=== PATIENT | female | born 1940 | race Caucasian/White ===

== ENCOUNTER 2017-08-24 09:32 | Emergency (ER) | payer MEDICARE ==
[~2017-08-24] VITALS: Ht 157.5 cm; Wt 80.0 kg
[~2017-08-24 09:32] MED LIST: ACCUPRIL40 MG PO; ACIPHEX20 MG PO; AMARYL1 M1 PO; AMARYL2 MG PO; ASPIRIN EC81 MG PO; FLEXERIL PO; GLIMEPIRIDE2 MG PO; INVOKANA100 MG PO; LANTUS SOLOSTAR SC; LEVOTHYROXIN137 MCG PO; MAXZIDE-2537.5 MG/TA PO; MOBIC7.5 M1 PO; NERVE PO; NEURONTIN300 MG PO; NIFEDIPINE ER60 M1 PO; PROCARDIA XL90 MG PO; PROTONIX40 MG PO; SYNTHROID175 MCG PO; VICTOZA18 MG/3 ML; VITAMIN B-12500 MCG PO; VITAMIN D5000 UNIT PO; [UNRECOGNIZED DRUG - OTHER] OT; [UNRECOGNIZED DRUG - OTHER] PO
[2017-08-24] MEDS ORDERED: AMOXICILLIN500 MG PO ×2 (10:28→10:47)
[2017-08-24] MEDS ORDERED: BENADRY2 EX ×2 (10:28→10:47)
[2017-08-24 10:49] VITALS: BP 180/71
== END 2017-08-24 10:29 | disposition home or self-care (01) ==
LOC: ED 09:32
DX: L03.115 Cellulitis of right lower limb (principal); I10 Essential (primary) hypertension; E11.9 Type 2 diabetes mellitus without complications

== ENCOUNTER 2018-07-14 12:07 | Inpatient (IN) | payer MEDICARE ==
[~2018-07-14] VITALS: Ht 157.5 cm; Wt 82.0 kg
[~2018-07-14 12:07] MED LIST changes: +AMOXICILLIN500 MG PO; +BENADRY2 EX
--- NOTE | 2018-07-14 12:25 | NUR ---
PT TRIAGED, AMBULATES TO TX ROOM WITH STABLE GAIT.
[2018-07-14 13:08] LABS: HEMATOCRIT 39.4 % (37.0-47.0); HEMOGLOBIN 12.7 g/dl (12.0-16.0); IMMATURE GRANULOCYTES 0.3 % (0.0-5.0); MEAN CELL VOLUME 90.8 fL CALC (80.0-100.0); MEAN CORPUSCULAR HGB 29.3 pG CALC (26.0-32.0); MEAN CORPUSCULAR HGB CONC 32.2 g/L CALC (32.0-36.0); NEUT# 14.71 thou/uL (2.00-7.15); RED BLOOD COUNT 4.34 mill/uL (4.20-5.60); RED CELL DISTRI WIDTH 12.5 % (11.5-15.5)
[2018-07-14 13:14] LABS: CREATININE 1.6 mg/dL (0.5-1.0)
[2018-07-14 13:15] LABS: INFLUENZA A NONE DETECTED (NONE DETECT); INFLUENZA B NONE DETECTED (NONE DETECT)
--- NOTE | 2018-07-14 13:16 | NUR ---
PT STATES WAS GIVEN RX FOR AMOXICILLIN THIS AM, GOT IT FILLED BUT HAS NOT TAKEN ANY OF THE PILLS YET.
[2018-07-14 13:42] LABS: URINE BILIRUBIN - DIPSTICK NEGATIVE (NEGATIVE); URINE BLOOD DIPSTICK NEGATIVE (NEGATIVE); URINE COLOR YELLOW; URINE GLUCOSE - DIPSTICK NEGATIVE (NEGATIVE); URINE KETONE NEGATIVE (NEGATIVE); URINE LEUK ESTERASE NEGATIVE (NEGATIVE); URINE NITRITE - DIPSTICK NEGATIVE (Negative); URINE PROTEIN - DIPSTICK NEGATIVE (NEG-TRACE); URINE UROBILINOGEN - DIPSTICK 0.2 E.U./dL (0.2)
--- NOTE | 2018-07-14 13:51 | NUR ---
PT RESTING QUIETLY ON STRETCHER, AT BEDSIDE. PT HAS CALL LIGHT WITHIN REACH, SIDE RAILS UP.
[2018-07-14 14:05] LABS: URINE CLARITY CLEAR
--- NOTE | 2018-07-14 14:11 | NUR ---
SBAR PRINTED TO FLOOR
--- NOTE | 2018-07-14 14:36 | NUR ---
PT REPORT CALLED TO FLOOR
--- NOTE | 2018-07-14 14:57 | NUR ---
PT ARRIVED TO RM 282 @1457 VIA WHEELCHAIR, WEIGHT OBTAINED. PT ALERT AND ORIENTED X3, NO EDEMA. ORIENTED PT TO ROOM AND CALL LIGHT SYSTEM. 2ND BOLUS INFUSING AT THIS TIME FROM ER. NOTED IV SITE LEAKING. IV SITE REMOVED, CATHETER INTACT. NEW IV SITE OBTAINED #22 RFA SUCCESSFUL AFTER 1 ATTEMPT. PT TOLERATED WELL, CONTINUED WITH BOLUS, FAMILY AT BEDSIDE. ADMISSION ASSESSMENT COMPLETED. CALL LIGHT IN REACH,CONTINUE TO MONITOR.
[2018-07-14 15:06] VITALS: BP 114/78
--- NOTE | 2018-07-14 16:50 | NUR ---
SASHA APPLIED AND EDUCATED PT ON USE OF INCENTIVE SPIROMETER, PT DEMONSTRATED ITS USE. TOTAL VOLUME 1000. CALL LIGHT IN REACH,CONTINUE TO MONITOR.
[2018-07-14 16:52] LABS: CHOLESTEROL HDL RATIO 5.4 (<4.4 (CALC))
[2018-07-14 20:00] VITALS: BP 142/67
--- NOTE | 2018-07-14 22:09 | NUR ---
PT MEDICATED ORDES PROVIDE, MEDICATED FOR TEMP OF 102.1 AND PT ASSESSED AT THIS TIME. LUNG SOUNDS ARE CLEAR, NO NOTED EDEMA, ABD SOFT NON-TENDER, LOCX3, NEURO'S INTACT. POC DISCUSSED AND PT PROVIDED COMFORT MEASURES REQUESTED. CALL LIGHT IS AT BEDSIDE AND PT ENCOURAGED TO CALL. WILL FOLLOW-UP TO MONITOR TEMP.
[2018-07-15 00:30] VITALS: BP 131/57
--- NOTE | 2018-07-15 01:25 | NUR ---
PT APPEARS TO BE SLEEPING AT THIS TIME. NO S/S OF DISTRESS NOTED. CALL LIGHT IS AT SIDE.
--- NOTE | 2018-07-15 03:43 | NUR ---
PT MEDICATED FOR TEMP AND HEADACHE. IV FLUIDS REPLENISHED AT THIS TIME. PT ASSISTED TO RESTROOM AND BACK TO BED. PT EDUCATED REGARDING USE OF IS, SHE REPORTS THAT SHE IS USING IT WHEN SHE WAKES UP. DENIES ANY OTHER NEEDS AT THIS TIME. CALL LIGHT IS AT SIDE.
[2018-07-15 03:52] VITALS: BP 150/69
[2018-07-15 04:41] VITALS: BP 161/82
[2018-07-15 05:02] LABS: HEMATOCRIT 33.8 % (37.0-47.0); IMMATURE GRANULOCYTES 0.6 % (0.0-5.0); MEAN CELL VOLUME 91.1 fL CALC (80.0-100.0); MEAN CORPUSCULAR HGB 29.6 pG CALC (26.0-32.0); MEAN CORPUSCULAR HGB CONC 32.5 g/L CALC (32.0-36.0); NEUT# 10.36 thou/uL (2.00-7.15); RED BLOOD COUNT 3.71 mill/uL (4.20-5.60); RED CELL DISTRI WIDTH 12.7 % (11.5-15.5)
[2018-07-15 05:19] LABS: CREATININE 1.2 mg/dL (0.5-1.0); MAGNESIUM 1.6 mg/dL (1.6-2.3); POTASSIUM 4.4 mmol/l (3.5-5.1)
[2018-07-15 08:00] VITALS: BP 133/55
--- NOTE | 2018-07-15 08:00 | NUR ---
PT RESTING IN BED, NO SIGNS OF DISTRESS NOTED, RESP EVEN AND UNLABORED. PT ALERT AND ORIENTED X3, 02 2L NC, PT VOICES NO NEEDS OR COMPLAINTS AT THIS TIME. DISCUSSED POC, PT IN AGREEMENT. IS AT BEDSIDE. ASSESSMENT COMPLETED, CALL LIGHT IN REACH,CONTINUE TO MONITOR.
--- NOTE | 2018-07-15 14:00 | NUR ---
PT REQUESTING SOMETHING FOR HER THROAT, THROAT LOZENGES ORDERED, WILL GIVE ONCE PROFILED.
[2018-07-15 17:00] VITALS: BP 151/55
--- NOTE | 2018-07-15 17:00 | NUR ---
PT TEMP ELEVATED 102.2, TYLENOL 500MG GIVEN, INFORMED [employer]ED [employer] ROBOTICIST. ORDERS CHANGED FOR TYLENOL. PT VOICES NO COMPLAINTS AT THIS TIME. CALL LIGHT IN REACH,CONTINUE TO MONITOR.
--- NOTE | 2018-07-15 18:20 | NUR ---
VISITORS AT BEDSIDE, RECHECKED FEVER, TEMP 101.6 AT THIS TIME. CONTINUE TO MONITOR.
[2018-07-15 20:00] VITALS: BP 129/55
--- NOTE | 2018-07-15 21:47 | NUR ---
PT MEDICATED FOR COUGH AND TEMP OF 101.6 ROOM IS COOLED. NO SOB NOTED, REPORTS OF NON-PRODUCTIVE COUGH. NO OTHER S/O DISTRESS NOTED. LUNG SOUNDS ARE CLEAR, ABD SOFT/NON-TENDER, NO EDEMA NOTED, DENIES PAIN/N/V. POC DISCUSSED ALONG W/MEDICATION SCHEDULE. CALL LIGHT IS AT SIDE AND PT ENCOURAGED TO CALL IF ANY ASSISTANCE IS NEEDED.
--- NOTE | 2018-07-16 00:12 | NUR ---
PT IV FLUIDS REPLENISHED AT THIS TIME. SHE DENIES SOB/N/V AND NO NOTED DISTRESS. TV ON LIGHTS OFF CALL LIGHT IN HAND. DENIES ANY OTHER NEEDS BUT PT ENCOURAGED TO CALL IF ANY NEEDS DO ARISE.
[2018-07-16 00:23] VITALS: BP 120/46
--- NOTE | 2018-07-16 03:00 | NUR ---
PT APPEARS TO BE SLEEPING AT THIS TIME. CALL LIGHT AT SIDE AND NO S/S OF DISTRESS NOTED. WILL CONTINUE TO MONITOR.
[2018-07-16 04:00] VITALS: BP 153/56
[2018-07-16 04:36] LABS: HEMATOCRIT 37.4 % (37.0-47.0); HEMOGLOBIN 11.8 g/dl (12.0-16.0); IMMATURE GRANULOCYTES 0.5 % (0.0-5.0); MEAN CELL VOLUME 92.6 fL CALC (80.0-100.0); MEAN CORPUSCULAR HGB 29.2 pG CALC (26.0-32.0); MEAN CORPUSCULAR HGB CONC 31.6 g/L CALC (32.0-36.0); NEUT# 7.73 thou/uL (2.00-7.15); RED BLOOD COUNT 4.04 mill/uL (4.20-5.60); RED CELL DISTRI WIDTH 12.8 % (11.5-15.5)
[2018-07-16 05:04] LABS: ANION GAP 14 (6-22 (CALC)); BUN 14 mg/dL (8-23); BUN/CREATININE RATIO 14 (12-20 (CALC)); CARBON DIOXIDE 23 mmol/l (22-30); CHLORIDE 108 mmol/l (95-108); GFR 54 ML/MIN (>=60 (CALC)); GFR FOR AFR.AMER. > 60 ML/MIN (>=60 (CALC)); MAGNESIUM 1.7 mg/dL (1.6-2.3); POTASSIUM 4.5 mmol/l (3.5-5.1); SODIUM 140 mmol/l (137-146)
--- NOTE | 2018-07-16 05:12 | NUR ---
PT WAS SLEEPING WE ENTERED THE ROOM. V/S ASSESSED. IV FLUIDS ARE RUNNING ORDERS PROVIDE/SITE APPEARS HEALTHY. NO S/S OF DISTRESS NOTED. CALL LIGHT IS AT SIDE AND PT ENCOURAGED TO CALL IF ANY NEEDS ARISE.
--- NOTE | 2018-07-16 07:20 | NUR ---
REPORT RECEIVED FROM SUSAN ESTRADA; PT LAYING IN BED AWAKE, PT JUST HAD A BATH; RESP EVEN AND UNLABORED; WILL CONTINUE TO MONITOR.
[2018-07-16 08:41] VITALS: BP 114/54
--- NOTE | 2018-07-16 08:45 | NUR ---
ASSESSMENT COMPLETED; VITALS STABLE; 02 2L N/C; IV PATENT NS @100 INFUSING WELL; NO REDNESS OR EDEMA TO SITE; TELE IN PLACE SR 75 ON MONITOR; EDUCATE PT OF AM MEDS, PT REFUSED LOVENOX; ENCOURAGE PT TO AMBULATE AND ASK FOR ASSISTANCE; PT VOICED NO CONCERNS; BED IN LOW LOCKED POSITION; WILL CONTINUE TO MONITOR.
--- NOTE | 2018-07-16 10:30 | NUR ---
TO US VIA WHEELCHAIR, FAMILY MEMBERS AT BEDSIDE.
--- NOTE | 2018-07-16 10:50 | NUR ---
PT BACK FROM CT, AMBULATED TO BATHROOMW WITH STEADY GAIT, BACK TO RECLINER AT BEDSIDE WITHOUT INCIDENT, IV SITE FLUSHED AND IVF RESTARTED AT PRESCRIBED RATE, CALL HANSEN WITHIN REACH.
--- NOTE | 2018-07-16 10:55 | NUR ---
SPECIMEN CUP PROVIDED FOR SPUTUM SPECIMEN IF ABLE, PT VERBALIZES UNDERSTANDING.
[2018-07-16 11:20] VITALS: BP 149/67
--- NOTE | 2018-07-16 12:00 | NUR ---
PT SITTING UP IN RECLINER EATING LUNCH, FAMILY MEMBERS PRESENT. PT VOICED NO CONCERNS.
--- NOTE | 2018-07-16 13:22 | NUR ---
S: BRIDGETTE SINGLETARY is a 78 F who presents with sepsis and right upper lobe pneumonis. She has a history of diabetes, hypertension, hypothyroid. All medications in patient's chart were reviewed. O: VS: BP 149/67, P 80, RR 20,T 98.4 W 82.015 kg, HT 5'2in , Scr=1,CrCl=46.756 ml/min A: Blood culture show no growth after 48 hours. P: Patient is on Azithromycin and Ceftriaxone. Vancomycin ordered for pharmacy to dose. Start Vancomycin 1250mg IV Q24H. Vancomycin trough is drawn before the 4th dose on 07/19/2018 @ 15:30. Vancomycin goal trough is between 15-20 mcg/ml. Pharmacy will follow and or advise on antibiotics use as needed.
[2018-07-16 15:40] VITALS: BP 131/59
--- NOTE | 2018-07-16 16:13 | NUR ---
PT REMAIN SITTING UP IN RECLINER VISITING WITH HER DAUGHTER AND WATCHING TV; IV PATENT; PT SHOWS NO S/S OF DISTRESS; CALL HANSEN IN REACH; WILL CONTINUE TO MONITOR.
--- NOTE | 2018-07-16 17:29 | NUR ---
PT STATED HER HEAD'S HURTING AND FEELS LIKE SHE HAS A FEVER (99.4) PT REQUESTED TYLENOL, MEDICATED PER EMAR; PT SITTING UP IN BED EATING SUPPER AND VISITING WITH HER DAUGHTER.
--- NOTE | 2018-07-16 19:23 | NUR ---
BEDSIDE PRPORT RECEIVED FROM ANNEL MILLER. PT SITTING UP IN BED WITH FAMILY AT BEDSIDE; ALERT AND ORIENTED. DENIES PAIN CURRENTLY. RESPIRATIONS EVEN AND UNLABORED ON OXYGEN; AWARE THAT WE NEED SPUTUM SPECIMEN. PLAN OF CARE DISCUSSED. PT ENCOURAGED TO VERABLIZE CONCERNS. STATES UNDERSTANDING. SAFETY MEASURES IN PLACE. CALL LIGHT WITHIN REACH.
[2018-07-16 20:13] VITALS: BP 135/64
[2018-07-17] VITALS: BP 138/71
--- NOTE | 2018-07-17 | NUR ---
PT ASLEEP AT THIS TIME WITH NO SIGNS OF DISTRESS. RESPIRATIONS EVEN AND UNLABORED ON OXYGEN. OCCASIONAL COUGHING NOTED; PT DECLINED PRN ROBITUSSIN OFFERED AT HS. IV FLUIDS INFUSING WITHOUT DIFFICULTY; IV SITE APPEARS HEALTHY. INDEPENDENT IN ROOM; USES CALL LIGHT PRN FOR ASSISTANCE. SAFETY MEASURES IN PLACE. CALL LIGHT WITHIN REACH.
[2018-07-17 04:00] VITALS: BP 134/59
--- NOTE | 2018-07-17 04:41 | NUR ---
NO ACUTE CHANGES IN CONDITION THROUGHOUT THE NIGHT. PT AWAKENS SPONTANEOUSLY FOR VS AND LAB WORK. NO REQUESTS OR CONCERNS AT THIS TIME.
[2018-07-17 05:36] LABS: HEMOGLOBIN 11.1 g/dl (12.0-16.0); MEAN CELL VOLUME 92.6 fL CALC (80.0-100.0); MEAN CORPUSCULAR HGB 29.4 pG CALC (26.0-32.0); MEAN CORPUSCULAR HGB CONC 31.7 g/L CALC (32.0-36.0); NEUT# 9.23 thou/uL (2.00-7.15); RED BLOOD COUNT 3.78 mill/uL (4.20-5.60); RED CELL DISTRI WIDTH 13.1 % (11.5-15.5)
[2018-07-17 05:46] LABS: ANION GAP 17 (6-22 (CALC)); BUN 16 mg/dL (8-23); BUN/CREATININE RATIO 19 (12-20 (CALC)); CARBON DIOXIDE 20 mmol/l (22-30); CHLORIDE 109 mmol/l (95-108); CREATININE 0.9 mg/dL (0.5-1.0); GFR > 60 ML/MIN (>=60 (CALC)); GFR FOR AFR.AMER. > 60 ML/MIN (>=60 (CALC)); MAGNESIUM 1.7 mg/dL (1.6-2.3); SODIUM 140 mmol/l (137-146)
[2018-07-17 05:48] LABS: POTASSIUM 5.5 mmol/l (3.5-5.1)
--- NOTE | 2018-07-17 07:15 | NUR ---
REPORT RECEIVED FROM SUSAN RODRIGUEZ; PT LAYING IN BED WATCHING TV; RESP EVEN AND UNLABORED.
[2018-07-17 08:39] VITALS: BP 133/67
--- NOTE | 2018-07-17 08:40 | NUR ---
PT A/OX3; RESP EVEN & UNLABORED, 02 @ 2L NC; IV INFUSING NS@ 100CC/HR , SITE APPEARS HEALTHY; NO COUGH NOTED; PT STATED SHE HAD A SM BM TODAY; ADVISE HER NOT TO FLUSH TOILET; VOIDED 700CC CLEAR YELLOW URINE; TELE IN PLACE SR 85 ON MONITOR; PT ENCOURAGE TO GET OUT OF BED AND WALK; ADVISE TO CALL FOR ASSISTANCE; DAUGHTER AT BED SIDE; CALL LIGHT IN REACH; MEDICATED PER EMAR. WILL CONTINUE TO MONITOR.
--- NOTE | 2018-07-17 11:15 | NUR ---
ACCUC CHECK 416; DR YEPEZ ON FLOOR AND ORDERED 10 UNITS INSULIN BE GIVEN TO PT.
[2018-07-17 11:20] VITALS: BP 138/62
--- NOTE | 2018-07-17 11:52 | NUR ---
PT WALKED THE HALLS WITH HER DAUGHTER; NOW SITTING UP IN RECLINER EATING LUNCH; FAMILY PRESENT IN ROOM.
--- NOTE | 2018-07-17 12:29 | NUR ---
DR YEPEZ IN TO SEE PT DISCUSS POC
--- NOTE | 2018-07-17 13:05 | NUR ---
PT OFF THE FLOOR TO CT VIA W/C WITH 02 2L; ACCOMPANIED BY A VOLUNTEER WITH A ROWLEY PASS.
--- NOTE | 2018-07-17 14:00 | NUR ---
PT BACK FROM RADIOLOGY, UNABLE TO PERFORM THORACENTESIS PER CHANDRIKA STERNP NOT ENOUGH FLUID TO COMPLETE. AWARE. PT AWARE OF CONTINUED NEED FOR SPUTUM SPECIMEN FOR CULTURE, RT TO ATTEMPT INDUCTION. CALL HANSEN WITHIN REACH.
[2018-07-17 15:15] VITALS: BP 133/63
--- NOTE | 2018-07-17 15:34 | NUR ---
PT SITTING UP IN BED WATCHING TV AND ON HER PHONE. O2 IS 85% ON ROOM AIR; PT WAS ADVISED TO WEAR O2 @ 2L NC; NO S/S OF DISTRESS NOTED; WILL CONTINUE TO MONITOR.
--- NOTE | 2018-07-17 15:42 | NUR ---
PT SITTING UP IN RECLINER, PT VOICED NO CONCERNS; IV INFUSING WITH EASE; FAMILY MEMBERS PRESENT IN ROOM. WILL CONTINUE TO MONITOR.
--- NOTE | 2018-07-17 19:20 | NUR ---
BEDSIDE REPORT RECEIVED FROM ANNEL MILLER. PT SITTING UP IN BEDSIDE CHAIR WITH DAUGHTER AT BEDSIDE; ALERT AND ORIENTED. DENIES PAIN. RESPIRATIONS EVEN AND UNLABORED ON ROOM AIR AND LUNGS ARE CLEAR. VANCO INFUSING AT THIS TIME; PT TOLERATING WELL. PLAN OF CARE REVIEWED. PT ENCOURAGED TO VERABLIZE CONCERNS. STATES UNDERSTANDING. SAFETY MEASURES IN PLACE. CALL LIGHT WITHIN REACH.
[2018-07-17 20:00] VITALS: BP 128/60
--- NOTE | 2018-07-17 22:00 | NUR ---
HS BLOOD SUGAR 421; DR. FOX NOTIFIED. NEW ORDERS FOR ADDITIONAL LEVEMIR AND NOVOLOG; ADMINISTERED WITH SNACK.
--- NOTE | 2018-07-18 00:22 | NUR ---
PT ASLEEP AT THIS TIME WITH NO SIGNS OF DISTRESS. RESPIRATIONS EVEN AND UNLABORED ON ROOM AIR. IV SITE APPEARS HEALTHY AND FLUSHES. PT IS INDEPENDENT IN ROOM; USES CALL LIGHT PRN FOR ASSISTANCE. SAFETY MEASURES IN PLACE. CALL LIGHT WITHIN REACH.
[2018-07-18 00:38] VITALS: BP 137/64
[2018-07-18 04:00] VITALS: BP 143/72
--- NOTE | 2018-07-18 04:14 | NUR ---
NO ACUTE CHANGES IN CONDITION THROUGHOUT THE NIGHT. PT AWAKNES SPONTANEOUSLY FOR VS AND LAB WORK. NO REQUESTS OR CONCERNS AT THIS TIME. SAFETY MEASURES IN PLACE. CALL LIGHT WITHIN REACH.
[2018-07-18 05:27] LABS: HEMATOCRIT 33.6 % (37.0-47.0); HEMOGLOBIN 10.6 g/dl (12.0-16.0); MEAN CELL VOLUME 92.8 fL CALC (80.0-100.0); MEAN CORPUSCULAR HGB 29.3 pG CALC (26.0-32.0); MEAN CORPUSCULAR HGB CONC 31.5 g/L CALC (32.0-36.0); PLATELET COUNT 446 thou/uL (130-400); RED BLOOD COUNT 3.62 mill/uL (4.20-5.60); RED CELL DISTRI WIDTH 13.4 % (11.5-15.5)
[2018-07-18 05:48] LABS: BILIRUBIN, TOTAL 0.2 mg/dL (0.0-1.4); CREATININE 1.1 mg/dL (0.5-1.0); MAGNESIUM 1.6 mg/dL (1.6-2.3)
[2018-07-18 05:50] LABS: MANUAL DIFFERENTIAL YES
[2018-07-18 05:53] LABS: POTASSIUM 5.4 mmol/l (3.5-5.1)
--- NOTE | 2018-07-18 07:05 | NUR ---
PT LAYING IN BED EASILY AWAKEN; VOICED NO CONCERNS; RESP EVEN AND UNLABORED ON ROOM AIR; PT STATED SHE FEELS A LOT BETTER TODAY. WILL CONTINUE TO MONITOR.
[2018-07-18 07:30] VITALS: BP 146/65
--- NOTE | 2018-07-18 07:30 | NUR ---
PT A/O X3; NO S/S OF DISTRESS NOTED; PT STATED AGAIN THAT SHE FEELS REALLY GOOD TODAY AND IS GOING HOME; IV SITE FLUSED FREELY, SL, NO EDEMA OR REDNESS TO SITE; RESP EVEN AND UNLABORED ON ROOM AIR; VITALS STABLE; TELE IN PLACE; POC DISCUSSED; SPUTUM OBTAINED; PT ENCOURAGE TO USE IS, PT DEMONSTRATED PROPER USE; ASSISTED PT TO RECLINER FOR B/FAST; PT AMBLATED WITH STEADY GAIT; CALL HANSEN IN REACH; WILL CONTINUE TO MONITOR.
--- NOTE | 2018-07-18 11:31 | NUR ---
PT VISITING WITH HER DAUGHTER, HOPING TO BE DC TODAY; NO S/S OF DISTRESS NOTED. PT HAD A SHOWER, RESP EVEN AND UNLABORED.
[2018-07-18 12:29] VITALS: BP 154/63
--- NOTE | 2018-07-18 12:35 | NUR ---
DR YEPEZ AT BED SIDE TO DISCUSS POC
--- NOTE | 2018-07-18 15:41 | NUR ---
PT APPEARS TO BE SLEEPING WITH EYES CLOSED. NO S/S OF DISTRESS NOTED; TELE IN PLACE; RESP EVEN AND UNLABORED ON ROOM AIR. WILL CONTINUE TO MONITOR.
[2018-07-18 16:25] VITALS: BP 152/67
--- NOTE | 2018-07-18 17:00 | NUR ---
PT BEING TRF TO [facility] VIA STRETCHER BY [facility] IN [facility], FAMILY MEMBERS PRESENT.
--- NOTE | 2018-07-18 17:08 | NUR ---
REPORT GIVEN TO KATIE AT [facility].
== END 2018-07-18 17:03 | DRG 194 ==
LOC: ED 12:07 → ED-I 12:30 → ED 12:30 → ED-I 13:19 → ED 13:54 → MS2 13:55 → ED-I 14:37 → ED 14:37 → MS2 07-18 17:03
PROVIDERS: Family Medicine; Internal Medicine Nephrology; Nurse Practitioner Family; ADMIT Internal Medicine; ATTEND Internal Medicine
DX: J18.9 Pneumonia, unspecified organism (principal); J91.8 Pleural effusion in other conditions classified elsewhere; I12.9 Hypertensive chronic kidney disease with stage 1 through stage 4 chronic kidney disease, or unspecified chronic kidney disease; E11.22 Type 2 diabetes mellitus with diabetic chronic kidney disease; N18.3 Chronic kidney disease, stage 3 (moderate); E03.9 Hypothyroidism, unspecified; E11.65 Type 2 diabetes mellitus with hyperglycemia; R59.0 Localized enlarged lymph nodes; E78.5 Hyperlipidemia, unspecified; M19.90 Unspecified osteoarthritis, unspecified site; Z87.891 Personal history of nicotine dependence; Z79.4 Long term (current) use of insulin
CPT/HCPCS: J1650; J3370